=== PATIENT | female | born 1975 | race Caucasian/White ===

== ENCOUNTER 2020-06-23 05:56 | Day surgery (SDC) | payer OTHER | END 2020-06-23 13:00 | disposition home or self-care (01) | LOC: CIR.AMB 05:56 | PROVIDERS: ATTEND Surgery | DX: L72.0 Epidermal cyst (principal); Z20.828 Contact with and (suspected) exposure to other viral communicable diseases ==

== ENCOUNTER 2023-07-24 06:40 | Day surgery (SDC) | payer OTHER ==
[~2023-07-24] VITALS: Ht 152.4 cm; Wt 59.0 kg
[2023-07-24] MEDS ORDERED: DICLOFENAC POTA50 MG PO (14:21)
== END 2023-07-24 18:10 | disposition home or self-care (01) ==
LOC: CIR.AMB 06:40
PROVIDERS: ATTEND Obstetrics & Gynecology
DX: D25.0 Submucous leiomyoma of uterus (principal); N72 Inflammatory disease of cervix uteri; N93.8 Other specified abnormal uterine and vaginal bleeding; Z20.822 Contact with and (suspected) exposure to COVID-19; Z91.041 Radiographic dye allergy status; Z88.8 Allergy status to other drugs, medicaments and biological substances